=== PATIENT | male | born 1935 | race Two or more races ===

== ENCOUNTER 2017-04-03 11:35 | Emergency (ER) | payer MEDICAID ==
[~2017-04-03] VITALS: Ht 170.2 cm; Wt 77.1 kg
--- NOTE | 2017-04-03 11:45 | NUR ---
KANE HERNANDEZ FROM A BUS STOP, INEBRIATED, TO ER BED 12, MONITORED,AWAITING MD HERNÁNDEZ
--- NOTE | 2017-04-03 12:15 | NUR ---
Patient is resting comfortably in bed with eyes closed. Easily aroused to touch. VSS
[2017-04-03] MEDS ORDERED: IV NS 0.9% 1,000 ML BAG IV ONE (14:00)
[2017-04-03] MEDS ORDERED: Thiamine 100 MG in IV D5W 50 ML IV SCH (14:00)
[2017-04-03 14:10] LABS: BASOPHILS % (AUTO) 0.4 % (0.0-2.0); EOSINOPHILS # (AUTO) 0.1 /CMM (0.0-0.7); EOSINOPHILS % (AUTO) 3.9 % (0.0-6.0); HEMATOCRIT 27 % (39-51); HEMOGLOBIN 7.9 g/dL (13.5-17.5); LYMPHOCYTES # (AUTO) 1.1 /CMM (0.8-4.8); LYMPHOCYTES % (AUTO) 29.6 % (20.0-44.0); MEAN CORPUSCULAR HEMOGLOBIN 19 PG (26.0-33.0); MEAN CORPUSCULAR HGB CONC 30 g/dl (31.0-36.0); MEAN CORPUSCULAR VOLUME 65 fL (80-96); MONOCYTES # (AUTO) 0.2 /CMM (0.1-1.30); MONOCYTES % (AUTO) 4.9 % (2.0-12.0); NEUTROPHILS # (AUTO) 2.3 /CMM (1.8-8.9); NEUTROPHILS % (AUTO) 61.2 % (43.0-81.0); PLATELET COUNT (AUTO) 275 /CMM (150-450); RDW COEFFICIENT OF VARIATION 21.1 (11.5-15.0); RED BLOOD CELL COUNT(AUTO) 4.14 MIL/uL (4.5-6.0); WHITE BLOOD COUNT (AUTO) 3.7 K/uL (4.3-11.0)
[2017-04-03 14:24] LABS: CALCIUM, SERUM 7.9 mg/dL (8.5-10.1); CREATININE 0.6 mg/dL (0.6-1.3); POTASSIUM 3.2 mmol/L (3.5-5.1)
[2017-04-03 14:27] LABS: ALBUMIN 3.4 g/dL (3.4-5.0); BILIRUBIN,DIRECT 0.2 mg/dL (0.0-0.2); BILIRUBIN,TOTAL 0.5 mg/dL (0.2-1.0); SALICYLATE 0.5 mg/dL (2.8-20.0); TOTAL PROTEIN, SERUM 7.3 g/dL (6.4-8.2)
[2017-04-03] MEDS ORDERED: IV NS 0.9% 1,000 ML ONE (14:29)
[2017-04-03] MEDS ORDERED: IV SET PRIMARY PUMP SET 1 EA INFUS.SET MC ONE (14:29)
--- NOTE | 2017-04-03 14:40 | NUR ---
PT NOW RESPONSIVE TO TOUCH AND ABLE TO TELL HIS NAME. NAD NOTED. ER ADMITTING NOTIFIED TO RECONCILE ACCOUNT. Addendum: 04/03/17 at 1442 by HFOX ASSUMED CARE OF PT AT THIS TIME. PT PRESENTED TO ER FOR ETOH INTOX. RESP EVEN UNLABORED. AROUSABLE TO TOUCH AT THIS TIME. IV ACCESS PRESENT, STARTED BY INPATIENT AUDITOR. IVF ONGOING. IN ER BED 12 ON MONITOR.
[2017-04-03 14:46] LABS: EOSINOPHILS % (MANUAL) 4 % (0-4); LYMPHOCYTES % (MANUAL) 38 % (16-48); MONOCYTES % (MANUAL) 4 % (0-11.0); NEUTROPHILS % (MANUAL) 54 (42-76)
--- NOTE | 2017-04-03 16:20 | NUR ---
RESTING QUIETLY, AROUSABLE TO VERBAL STIMULUS. NAD NOTED. VSS.
--- NOTE | 2017-04-03 17:31 | NUR ---
PT AMBULATED TO RESTROOM WITH UNSTEADY GAIT.
--- NOTE | 2017-04-03 19:05 | NUR ---
Patient is resting comfortably in bed with eyes closed. Easily aroused. VSS
--- NOTE | 2017-04-03 21:26 | NUR ---
PT AWAKE, ALERT, ORIENTED. AMBULATORY WITH STEADY GAIT.
--- NOTE | 2017-04-03 22:00 | NUR ---
IV removed. Catheter intact and site benign. Pressure and 4x4 applied to site. No bleeding noted. Patient discharged to home in stable condition. Written and verbal after care instructions given. Patient verbalizes understanding of instruction. AMBUALTROY WITH STEADY GAIT. PROVIDED WITH [facility] HOME.
[2017-04-03 22:33] VITALS: BP 118/69
== END 2017-04-03 22:00 | disposition home or self-care (01) ==
LOC: ER 11:39 → EDBD 11:39 → ER 22:00
DX: R41.82 Altered mental status, unspecified (principal); F10.129 Alcohol abuse with intoxication, unspecified; M79.604 Pain in right leg; W19.XXXA Unspecified fall, initial encounter; Y93.01 Activity, walking, marching and hiking; Y92.89 Other specified places as the place of occurrence of the external cause; Y99.8 Other external cause status
CPT/HCPCS: 70450-TC; 80048-TC; 80076-TC; 85025-TC; A4606; G0480; J3411; J7030; J7060; Z7610

== ENCOUNTER 2017-09-06 13:58 | Emergency (ER) | payer MEDICAID ==
[~2017-09-06] VITALS: Ht 170.2 cm; Wt 95.3 kg
--- NOTE | 2017-09-06 14:00 | NUR ---
BIBR 60 FOR ETOH, NAD NOTED, VSS, RESP EVEN AND UNLABORED, PT PUT ON MONITOR, WAITING FOR MD HERNÁNDEZ.
[2017-09-06] MEDS ORDERED: IV NS 0.9% 1,000 ML BAG IV ONE (14:30)
[2017-09-06 14:42] LABS: BASOPHILS # (AUTO) 0.1 /CMM (0.0-0.2); BASOPHILS % (AUTO) 1.3 % (0.0-2.0); EOSINOPHILS # (AUTO) 0.1 /CMM (0.0-0.7); HEMATOCRIT 33 % (39-51); HEMOGLOBIN 10.5 g/dL (13.5-17.5); LYMPHOCYTES # (AUTO) 2.2 /CMM (0.8-4.8); LYMPHOCYTES % (AUTO) 37.4 % (20.0-44.0); MEAN CORPUSCULAR HEMOGLOBIN 22 PG (26.0-33.0); MEAN CORPUSCULAR HGB CONC 32 g/dl (31.0-36.0); MEAN CORPUSCULAR VOLUME 71 fL (80-96); MONOCYTES # (AUTO) 0.2 /CMM (0.1-1.30); NEUTROPHILS # (AUTO) 3.3 /CMM (1.8-8.9); NEUTROPHILS % (AUTO) 55.3 % (43.0-81.0); PLATELET COUNT (AUTO) 251 /CMM (150-450); RDW COEFFICIENT OF VARIATION 22.1 (11.5-15.0)
[2017-09-06 14:51] LABS: SERUM AMMONIA 19 umol/L (11-32)
[2017-09-06 14:53] LABS: CALCIUM, SERUM 8.5 mg/dL (8.5-10.1); CARBON DIOXIDE 25 mmol/L (21-32); CHLORIDE 107 mmol/L (98-107); CREATININE 0.5 mg/dL (0.6-1.3); GLUCOSE 88 mg/dL (74-106); POTASSIUM 3.7 mmol/L (3.5-5.1); SODIUM SERUM 145 mmol/L (136-145); UREA NITROGEN, BLOOD 15 mg/dL (7-18)
--- NOTE | 2017-09-06 14:57 | NUR ---
PT TO CTSCAN
[2017-09-06 15:01] LABS: TROPONIN I < 0.017 ng/mL (0.00-0.056)
[2017-09-06 15:02] LABS: ALANINE AMINOTRANSFERASE 22 U/L (12-78); ALBUMIN 3.8 g/dL (3.4-5.0); ALCOHOL, BLOOD 386 mg/dL (0-0); ALKALINE PHOSPHATASE 87 U/L (46-116); ASPARTATE AMINOTRANSFERASE 38 U/L (15-37); BILIRUBIN,DIRECT 0.1 mg/dL (0.0-0.2); BILIRUBIN,TOTAL 0.4 mg/dL (0.2-1.0); TOTAL PROTEIN, SERUM 8.1 g/dL (6.4-8.2)
[2017-09-06 15:06] LABS: INR 0.96 (0.87-1.13)
--- NOTE | 2017-09-06 16:37 | NUR ---
Patient is resting comfortably in bed with eyes closed. Easily aroused. VSS
--- NOTE | 2017-09-06 19:30 | NUR ---
PT TRANSFERRED TO ER BED 8. RECEIVED REPORT FROM IVANIA WANG
--- NOTE | 2017-09-06 21:24 | NUR ---
IV removed. Catheter intact and site benign. Pressure and 4x4 applied to site. No bleeding noted.
--- NOTE | 2017-09-06 21:25 | NUR ---
Patient discharged to home in stable condition. Written and verbal after care instructions given. Patient verbalizes understanding of instruction. ambulatory with a steady gait
[2017-09-06 21:26] VITALS: BP 106/61
== END 2017-09-06 21:27 | disposition home or self-care (01) ==
LOC: ER 14:01
DX: F10.20 Alcohol dependence, uncomplicated (principal); R79.1 Abnormal coagulation profile
CPT/HCPCS: 36415; 70450; 80048; 80076; 82140; 84484; 85025; 85730; 93005; 96360; 99285; A4606; G0480; J7030; Z7610